=== PATIENT | male | born 1960 ===

== ENCOUNTER 2024-02-16 15:27 | Inpatient (IN) | payer BC ==
[~2024-02-16 15:27] MED LIST: Iopamidol-370 76% 500 ML MDV (1 ML CHARGE) ONE
[2024-02-16 16:42] LABS: Hemoglobin 12.7 g/dL (14.0-18.0); Mean Corpuscular HGB CONC 33.4 g/dL (32.0-36.0); Mean Corpuscular Hemoglobin 32.2 pg (27.0-31.0); Mean Corpuscular Volume 96.4 fL (78.0-98.0); Mean Platelet Volume 10.5 fL (7.4-10.4); Platelet Count 228 10x3/uL (130-400); RBC Distribution Width 15.5 % (11.5-14.5); Red Blood Cell (RBC) Count 3.94 mill/uL (4.70-6.10)
[2024-02-16 16:58] LABS: Troponin I Less than 0.010 ng/mL (< 0.028)
[2024-02-16 17:07] LABS: Anisocytosis SLIGHT = 6-15 cells HPF (0-5); Band 28 % (5-11); Lymphocytes 6 % (21-51); Metamyelocyte 1 % (0-0); Monocytes 5 % (0-10); Myelocyte 1 % (0-0); Neutrophil 59 % (42-75); Platelet Adequacy Comment Platelets Normal; Polychromasia SLIGHT = 2-3 cells HPF (0-2)
[2024-02-16 17:08] LABS: Lipase 9 U/L (8-78); Magnesium 1.7 mg/dL (1.6-2.6)
[2024-02-16 17:09] LABS: ALT (SGPT) 45 U/L (8-55); AST (SGOT) 51 U/L (5-34); Albumin 3.2 g/dL (3.4-4.8); Alkaline Phosphatase 61 U/L (40-110); Anion Gap 15 mmol/L (10-20); BUN (Urea Nitrogen) 16 mg/dL (8.4-25.7); Calc. Creatinine Clearance 0 mL/min (70-130); Carbon Dioxide 26 mmol/L (23-31); Chloride 103 mmol/L (98-107); Estimated GFR 82; Globulin 3.4 g/dL (2.4-3.5); Glucose 107 mg/dL (80-115); Lipase 9 U/L (8-78); Potassium 3.9 mmol/L (3.5-5.1); Protein, Total 6.6 g/dL (5.8-8.1); Sodium 140 mmol/L (136-145)
[2024-02-16] MEDS ORDERED: Azithromycin 250 MG TAB ONE (18:09)
[2024-02-16] MEDS ORDERED: cefTRIAXone (ROCEPHIN) 1 GM VIAL ONE (18:09)
[2024-02-16] MEDS ORDERED: Sodium Chloride 0.9% 100 ML ONE (18:10)
[2024-02-16 18:43] LABS: Influenza A by NAA Not Detected (NotDetected); Influenza B by NAA Not Detected (NotDetected); SARS-CoV-2 NAA Rapid Test Not Detected (NotDetected)
[2024-02-16] MEDS ORDERED: Ondansetron ODT 4 MG TAB PO PRN (19:59)
[2024-02-16] MEDS ORDERED: Ondansetron PF 4 MG/2 ML Vial IVP PRN (19:59)
[2024-02-16] MEDS ORDERED: Acetaminophen 325 MG TAB PO PRN (19:59)
[2024-02-16] MEDS ORDERED: Ipratropium/Albuterol 3 ML NEB EZPAP PRN (19:59)
[2024-02-16] MEDS ORDERED: Benzonatate 100 MG CAP PO PRN (19:59)
[2024-02-16 22:52] VITALS: BMI 26.9
[2024-02-17 04:10] LABS: Hematocrit 34.7 % (42.0-52.0); Hemoglobin 11.4 g/dL (14.0-18.0); Mean Corpuscular HGB CONC 32.9 g/dL (32.0-36.0); Mean Corpuscular Hemoglobin 31.9 pg (27.0-31.0); Mean Corpuscular Volume 97.2 fL (78.0-98.0); Mean Platelet Volume 10.8 fL (7.4-10.4); Platelet Count 203 10x3/uL (130-400); RBC Distribution Width 15.6 % (11.5-14.5); Red Blood Cell (RBC) Count 3.57 mill/uL (4.70-6.10)
[2024-02-17 04:11] LABS: Lactic Acid 1.3 mmol/L (0.5-2.2)
[2024-02-17 05:20] LABS: Band 19 % (5-11); Lymphocytes 11 % (21-51); Monocytes 4 % (0-10); Neutrophil 65 % (42-75); Platelet Adequacy Comment Platelets Normal; RBC Morphology Within Normal Limits; Reactive Lymphocytes 1 % (0-10)
[2024-02-17 05:32] LABS: Anion Gap 10 mmol/L (10-20); BUN (Urea Nitrogen) 14 mg/dL (8.4-25.7); Calc. Creatinine Clearance 119 mL/min (70-130); Calcium 8.3 mg/dL (7.8-10.44); Carbon Dioxide 24 mmol/L (23-31); Chloride 109 mmol/L (98-107); Estimated GFR 102; Glucose 99 mg/dL (80-115); Potassium 3.8 mmol/L (3.5-5.1); Sodium 139 mmol/L (136-145)
[2024-02-17] MEDS: guaiFENesin ER 600 MG TAB PO SCH (07:48)
[2024-02-17] MEDS ORDERED: Ezetimibe 10 MG TAB PO SCH (09:00)
[2024-02-17] MEDS ORDERED: Escitalopram Oxalate 20 mg Tablet PO SCH (09:00)
[2024-02-17] MEDS ORDERED: Non-Formulary Item 1 EACH (Atorvastatin Calcium [Lipitor] 80 MG Tablet) PO SCH (09:00)
[2024-02-17] MEDS ORDERED: Prasugrel 10 MG TAB PO SCH (09:00)
[2024-02-17] MEDS ORDERED: Aspirin 81 mg Enteric Coated Tablet PO SCH (09:00)
[2024-02-17 09:01] LABS: Legionella Urinary Ag Negative (Negative); Strep pneumo Urine Ag NEGATIVE (NEGATIVE)
[2024-02-17] MEDS: Pantoprazole DR 40 MG TAB PO SCH (09:46)
[2024-02-17] MEDS: CO Q-10 CAPSULE 100 MG PO SCH (09:46)
[2024-02-17] MEDS: Aspirin 81 mg Enteric Coated Tablet PO SCH (09:47)
[2024-02-17] MEDS: Ezetimibe 10 MG TAB PO SCH (09:47)
[2024-02-17] MEDS: Escitalopram Oxalate 20 mg Tablet PO SCH (09:47)
[2024-02-17] MEDS: Prasugrel 10 MG TAB PO SCH (09:48)
[2024-02-17] MEDS: cefTRIAXone\\ROCEPHIN 1 GM in Sodium Chloride 0.9% 100 ML IVPB SCH (19:29)
[2024-02-17] MEDS: Doxycycline 100 MG CAP PO SCH (19:30)
[2024-02-17] MEDS: Atorvastatin Calcium 40 MG TAB PO SCH (21:27)
[2024-02-18 04:10] LABS: #Basophils 0.03 10x3/uL (0.0-0.2); %Basophils 0.3 % (0.0-1.0); %Eosinophils 0.9 % (0.0-10.0); %Lymphocytes 19.3 % (21.0-51.0); %Monocytes 4.4 % (0.0-10.0); %Neutrophils 74.6 % (42.0-75.0); Hemoglobin 11.6 g/dL (14.0-18.0); Mean Corpuscular HGB CONC 32.2 g/dL (32.0-36.0); Mean Corpuscular Hemoglobin 31.9 pg (27.0-31.0); Mean Corpuscular Volume 98.9 fL (78.0-98.0); Mean Platelet Volume 10.7 fL (7.4-10.4); Platelet Count 197 10x3/uL (130-400); RBC Distribution Width 15.4 % (11.5-14.5); Red Blood Cell (RBC) Count 3.64 mill/uL (4.70-6.10)
[2024-02-18 04:52] LABS: Anion Gap 15 mmol/L (10-20); BUN (Urea Nitrogen) 11 mg/dL (8.4-25.7); Calc. Creatinine Clearance 119 mL/min (70-130); Calcium 8.9 mg/dL (7.8-10.44); Carbon Dioxide 23 mmol/L (23-31); Chloride 106 mmol/L (98-107); Estimated GFR 102; Glucose 99 mg/dL (80-115); Potassium 4.4 mmol/L (3.5-5.1); Sodium 140 mmol/L (136-145)
[2024-02-18 11:52] VITALS: BP 133/96; TEMP 97.9
== END 2024-02-18 13:47 | disposition home or self-care (01) | DRG 871 ==
LOC: ERS 15:27 → 2SW 18:32 → OBSVTOIN 02-17 13:34
PROVIDERS: ADMIT Physician Assistant; ATTEND Internal Medicine
DX: A41.9 Sepsis, unspecified organism (principal); J18.9 Pneumonia, unspecified organism; I10 Essential (primary) hypertension; G47.33 Obstructive sleep apnea (adult) (pediatric); E78.5 Hyperlipidemia, unspecified; I25.10 Atherosclerotic heart disease of native coronary artery without angina pectoris; Z95.818 Presence of other cardiac implants and grafts; Z98.890 Other specified postprocedural states; Z87.891 Personal history of nicotine dependence
CPT/HCPCS: 36415; 71045; 71275; 80048; 80053; 83605; 83690; 83735; 83880; 84145; 84484; 85025; 85379; 87449; 87899; 93005; 93306; 96361; 96365; 96366; 96367; G0378; J0696; J3490; Q9967